=== PATIENT | male | born 1975 | race Caucasian/White ===

== ENCOUNTER 2019-06-19 20:09 | Observation (INO) | payer OTHER ==
[~2019-06-19] VITALS: Ht 177.8 cm; Wt 77.1 kg
[~2019-06-19 20:09] MED LIST: Ativan1 MG SL; BENADRYL25 MG PO; Bactrim Ds Tab1 EACH PO; Naprosyn500 MG PO; Pepcid20 MG PO; QUET25 PO; Ultram50 MG PO
== END 2019-06-20 01:31 | disposition home or self-care (01) ==
LOC: ER 20:09 → EOR 20:10
PROVIDERS: ADMIT Emergency Medicine
DX: F15.10 Other stimulant abuse, uncomplicated (principal); F41.9 Anxiety disorder, unspecified; Z88.2 Allergy status to sulfonamides; Z88.8 Allergy status to other drugs, medicaments and biological substances; F32.9 Major depressive disorder, single episode, unspecified; Z79.899 Other long term (current) drug therapy; F17.210 Nicotine dependence, cigarettes, uncomplicated
CPT/HCPCS: 36415; 93005; 93010; 96361; 96374; 99285-25; G0378; J2060; J7030

== ENCOUNTER 2019-08-12 01:22 | Emergency (ER) | payer OTHER ==
[~2019-08-12] VITALS: Ht 177.8 cm; Wt 77.1 kg
== END 2019-08-12 01:26 | disposition home or self-care (01) ==
LOC: ER 01:22
DX: F15.10 Other stimulant abuse, uncomplicated (principal); F17.210 Nicotine dependence, cigarettes, uncomplicated; Z88.2 Allergy status to sulfonamides; Z88.8 Allergy status to other drugs, medicaments and biological substances
CPT/HCPCS: 99284

== ENCOUNTER 2019-08-12 01:59 | Emergency (ER) | payer OTHER ==
[~2019-08-12] VITALS: Ht 165.1 cm; Wt 63.5 kg
== END 2019-08-12 02:18 | disposition home or self-care (01) ==
LOC: ER 01:59
DX: F15.10 Other stimulant abuse, uncomplicated (principal); F17.210 Nicotine dependence, cigarettes, uncomplicated; Z88.2 Allergy status to sulfonamides; Z88.8 Allergy status to other drugs, medicaments and biological substances
CPT/HCPCS: 99282

== ENCOUNTER → 2020-02-22 | Outpatient (CLI) | payer OTHER | END | disposition home or self-care (01) | LOC: LAB 15:26 → LAB SHORT 15:26 | DX: N49.2 Inflammatory disorders of scrotum (principal) | CPT/HCPCS: 87070; 87075; 87077; 87147; 87186; 87205 ==

== ENCOUNTER 2020-06-03 19:19 | Emergency (ER) | payer OTHER ==
[~2020-06-03] VITALS: Ht 177.8 cm; Wt 81.7 kg
== END 2020-06-03 20:57 | disposition home or self-care (01) ==
LOC: ER 19:19
DX: F22 Delusional disorders (principal); F17.210 Nicotine dependence, cigarettes, uncomplicated; Z88.2 Allergy status to sulfonamides; Z88.1 Allergy status to other antibiotic agents
CPT/HCPCS: 99282

== ENCOUNTER 2021-07-19 17:31 | Emergency (ER) | payer OTHER ==
[~2021-07-19] VITALS: Ht 177.8 cm; Wt 77.1 kg
[2021-07-19] MEDS ORDERED: CEPH500 PO (17:56)
== END 2021-07-19 18:15 | disposition home or self-care (01) ==
LOC: ER 17:31
DX: J34.0 Abscess, furuncle and carbuncle of nose (principal); F32.A Depression, unspecified; F17.210 Nicotine dependence, cigarettes, uncomplicated; Z88.2 Allergy status to sulfonamides; Z88.8 Allergy status to other drugs, medicaments and biological substances
CPT/HCPCS: 99283; A9270

== ENCOUNTER 2021-07-20 22:31 | Emergency (ER) | payer OTHER ==
[~2021-07-20] VITALS: Ht 177.8 cm; Wt 77.1 kg
[~2021-07-20 22:31] MED LIST changes: +CEPH500 PO
== END 2021-07-20 23:50 | disposition home or self-care (01) ==
LOC: ER 22:31
DX: R10.10 Upper abdominal pain, unspecified (principal); F32.A Depression, unspecified; F17.210 Nicotine dependence, cigarettes, uncomplicated; Z88.1 Allergy status to other antibiotic agents; Z88.2 Allergy status to sulfonamides
CPT/HCPCS: 99283

== ENCOUNTER 2021-08-01 00:57 | Emergency (ER) | payer OTHER ==
[2021-08-01 07:51] LABS: SARS-Cov-2 (COVID-19) PCR, MMC POSITIVE (NEGATIVE)
[2021-08-02] MEDS ORDERED: ACET500 PO (12:24)
== END 2021-08-01 01:15 | disposition home or self-care (01) ==
LOC: ER 00:57
PROVIDERS: Student in an Organized Health Care Education/Training Program
DX: J02.9 Acute pharyngitis, unspecified (principal); U07.1 COVID-19
CPT/HCPCS: 99283; U0004

== ENCOUNTER 2021-08-02 11:33 | Emergency (ER) | payer OTHER ==
[~2021-08-02] VITALS: Ht 177.8 cm; Wt 77.1 kg
[2021-08-02] MEDS ORDERED: ACET500 PO (12:24)
== END 2021-08-02 12:40 | disposition home or self-care (01) ==
LOC: ER 11:33
DX: U07.1 COVID-19 (principal); F17.210 Nicotine dependence, cigarettes, uncomplicated; Z88.8 Allergy status to other drugs, medicaments and biological substances
CPT/HCPCS: 36415; 99283; A9270

== ENCOUNTER 2022-01-21 18:52 | Emergency (ER) | payer OTHER ==
[~2022-01-21] VITALS: Ht 177.8 cm; Wt 77.1 kg
[~2022-01-21 18:52] MED LIST changes: +ACET500 PO
== END 2022-01-21 19:27 | disposition home or self-care (01) ==
LOC: ER 18:52
DX: F41.9 Anxiety disorder, unspecified (principal); R68.2 Dry mouth, unspecified; F17.210 Nicotine dependence, cigarettes, uncomplicated; Z88.2 Allergy status to sulfonamides; Z88.1 Allergy status to other antibiotic agents; Z79.899 Other long term (current) drug therapy
CPT/HCPCS: 93005; 93010

== ENCOUNTER 2022-08-08 01:14 | Emergency (ER) | payer OTHER ==
[~2022-08-08] VITALS: Ht 177.8 cm; Wt 81.7 kg
[2022-08-08 02:15] VITALS: BP 154/106
== END 2022-08-08 02:30 | disposition home or self-care (01) ==
LOC: ER 01:14
DX: F12.929 Cannabis use, unspecified with intoxication, unspecified (principal); T40.715A Adverse effect of cannabis, initial encounter; F17.210 Nicotine dependence, cigarettes, uncomplicated; Z88.2 Allergy status to sulfonamides; X58.XXXA Exposure to other specified factors, initial encounter
CPT/HCPCS: 71045; 93005; 93010; A9270

== ENCOUNTER 2023-12-15 21:39 | Emergency (ER) | payer OTHER ==
[~2023-12-15] VITALS: Ht 177.8 cm; Wt 77.1 kg
[2023-12-15 21:42] VITALS: BP 166/125
== END 2023-12-15 22:51 | disposition home or self-care (01) ==
LOC: ER 21:39
DX: Z03.6 Encounter for observation for suspected toxic effect from ingested substance ruled out (principal); F17.210 Nicotine dependence, cigarettes, uncomplicated; Z88.1 Allergy status to other antibiotic agents
CPT/HCPCS: 99283

== ENCOUNTER 2023-12-17 22:23 | Emergency (ER) | payer OTHER ==
[~2023-12-17] VITALS: Ht 177.8 cm; Wt 77.1 kg
[2023-12-18 03:30] VITALS: BP 168/72
[2023-12-18] MEDS ORDERED: ALPRAZolam 0.25 MG Tab PO ONE (03:35)
== END 2023-12-18 03:49 | disposition home or self-care (01) ==
LOC: ER 22:23
DX: F41.9 Anxiety disorder, unspecified (principal); F19.10 Other psychoactive substance abuse, uncomplicated; F17.210 Nicotine dependence, cigarettes, uncomplicated; I10 Essential (primary) hypertension; Z88.1 Allergy status to other antibiotic agents
CPT/HCPCS: 99282; A9270

== ENCOUNTER 2024-06-25 19:44 | Observation (INO) | payer OTHER ==
[~2024-06-25] VITALS: Ht 177.8 cm; Wt 77.1 kg
[2024-06-25 21:47] LABS: BASOPHILS ABSOLUTE AUTO 0.08 K/mm3 (0.00-0.23); BASOPHILS PERCENT AUTO 1 % (0-2); EOSINOPHILS PERCENT AUTO 1 % (0-6); Hematocrit 38.7 % (37.0-53.0); Hemoglobin 13.1 g/dL (13.5-17.5); IMMATURE GRAN ABSOLUTE AUTO 0.05 K/mm3 (0.00-0.10); IMMATURE GRAN PERCENT AUTO 0 % (0-1); LYMPHOCYTES ABSOLUTE AUTO 3.27 K/mm3 (0.84-5.20); LYMPHOCYTES PERCENT AUTO 25 % (21-46); MONOCYTES ABSOLUTE AUTO 1.03 K/mm3 (0.16-1.47); MONOCYTES PERCENT AUTO 8 % (4-13); Mean Corpuscular HGB 30.2 pg (26.0-34.0); Mean Corpuscular HGB Conc 33.9 g/dL (31.5-36.5); Mean Corpuscular Volume 89 fL (80-100); Mean Platelet Volume 9.1 fL (9.1-12.4); NEUTROPHILS ABSOLUTE AUTO 8.53 K/mm3 (1.96-9.15); NEUTROPHILS PERCENT AUTO 65 % (41-73); Platelet Count 350 K/mm3 (150-400); RDW Coefficient Variation 14.6 % (11.7-14.2); RDW Standard Deviation 47.8 fL (35.1-46.3); Red Blood Cell Count 4.34 M/mm3 (4.30-5.90); White Blood Cell Count 13.06 K/mm3 (4.00-11.30)
[2024-06-25 22:15] LABS: Acetaminophen, Random <2.0 ug/mL (10.0-30.0); Alanine Aminotransfer (ALT/SGP 22 U/L (12-78); Albumin, Blood 4.3 g/dL (3.4-5.0); Albumin/Globulin Ratio 1.5 (0.8-1.8); Alk Phos 98 U/L (50-136); Anion Gap 10 mmol/L (3-11); Aspartate Aminotrans (AST/SGOT 25 U/L (12-37); Bilirubin, Total 0.4 mg/dL (0.1-1.0); Blood Urea Nitrogen 39 mg/dL (8-24); Bun/Creatinine Ratio 30.2 (12.0-20.0); CO2, Blood 25 mmol/L (21-32); Calcium, Blood 9.1 mg/dL (8.5-10.1); Chloride, Blood 102 mmol/L (98-108); Creatinine, Blood 1.29 mg/dL (0.60-1.20); Ethanol (Alcohol), Blood, Med <3 mg/dL; Globulin, Blood 2.9 g/dL (2.2-4.0); Glomerular Filtration Rate 68 (60-); Glucose, Blood 96 mg/dL (70-99); Potassium, Blood 3.9 mmol/L (3.5-5.5); Salicylate 2.5 mg/dL (2.8-20.0); Sodium, Blood 133 mmol/L (136-145); Total Protein, Blood 7.2 g/dL (6.4-8.2)
[2024-06-25 22:27] LABS: Source, Urine Clean Catch
[2024-06-25 22:40] LABS: Bilirubin, Urine Neg (Neg); Blood, Urine Neg (Neg); Glucose Qualitative, Urine Neg (Neg); Ketones, Urine Neg (Neg); Leukocyte Esterase, Urine Neg (Neg); Nitrite, Urine Neg (Neg); Protein, Urine 1+ (Neg); Urobilinogen, Urine NORM (Normal)
[2024-06-25 23:03] LABS: U Amphetamine Screen DETECTED; U Barbituate Screen Not Detected; U Benzodiazapine Screen Not Detected; U Buprenorphine Screen Not Detected; U Cannabinoids Screen DETECTED; U Cocaine Screen Not Detected; U Methadone Screen Not Detected; U Methamphetamine Screen DETECTED; U Opiates Screen Not Detected; U Oxycodone Screen Not Detected; U Phencyclidine Screen Not Detected
[2024-06-25 23:06] LABS: Appearance, Urine Clear (Clear); Color, Urine Yellow (P-Yellow)
[2024-06-26 09:23] VITALS: BP 146/94
== END 2024-06-26 23:00 | disposition other institution (70) ==
LOC: ER 19:44 → EOR 19:45
PROVIDERS: ADMIT Student in an Organized Health Care Education/Training Program
DX: R45.851 Suicidal ideations (principal); F15.90 Other stimulant use, unspecified, uncomplicated; I10 Essential (primary) hypertension; F17.210 Nicotine dependence, cigarettes, uncomplicated; Z88.2 Allergy status to sulfonamides; Z88.1 Allergy status to other antibiotic agents
CPT/HCPCS: 80053; 80320; 85025; 99285; G0378; G0480

== ENCOUNTER 2024-06-26 09:50 | Inpatient (IN) | payer OTHER ==
[~2024-06-26] VITALS: Ht 177.8 cm; Wt 78.2 kg
[2024-06-26] MEDS ORDERED: LORazepam 2 MG/ML 1ML Injection IM PRN (12:40)
[2024-06-26] MEDS ORDERED: OLANZapine ODT 10 MG Tab MM PRN (12:40)
[2024-06-26] MEDS ORDERED: Polyethylene Glycol 3350 17 gm PO PRN (12:45)
[2024-06-26] MEDS ORDERED: Acetaminophen 325 MG TABLET PO PRN (12:45)
[2024-06-26] MEDS ORDERED: Melatonin 3 MG Tab PO PRN (12:45)
[2024-06-26] MEDS ORDERED: Aluminum Hydroxide 320MG/5ML 473 ML PO PRN (12:45)
[2024-06-26] MEDS ORDERED: Calcium Carbonate 500 MG Tab Chew PO PRN (12:45)
[2024-06-26] MEDS ORDERED: DiphenhydrAMINE HCl 50 MG Cap PO PRN (12:45)
[2024-06-26] MEDS ORDERED: TraZODone HCl 50 MG Tab PO PRN (12:45)
[2024-06-26] MEDS ORDERED: LORazepam 2 MG Tab PO PRN (12:50)
[2024-06-26] MEDS ORDERED: HydrOXYzine Pamoate 50 MG Cap PO PRN (12:50)
[2024-06-26] MEDS ORDERED: Haloperidol 5 MG Tab PO PRN (12:50)
[2024-06-26] MEDS ORDERED: DiphenhydrAMINE HCl 50 MG/ML 1ML Vial IV PRN (12:50)
[2024-06-26] MEDS ORDERED: Haloperidol Lactate Inj. 5 MG/ML Injection IM PRN (12:50)
[2024-06-26] MEDS ORDERED: Ibuprofen 600 MG Tab PO PRN (12:50)
[2024-06-26] MEDS ORDERED: Ondansetron 4 MG SoluTab MM PRN (13:15)
[2024-06-26 20:33] VITALS: BP 117/72
[2024-06-26] MEDS ORDERED: OLANZapine 10 MG Tab PO SCH (21:00)
[2024-06-26 21:58] VITALS: BP 117/72
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
[2024-06-26] MEDS ORDERED: Nicotine Polacrilex 2 MG Gum PO PRN (23:50)
--- NOTE | 2024-06-27 05:25 | NUR ---
SHIFT SUMMARY NO ACUTE EVENTS SINCE ASSUMPTION OF CARE AT 0000 FROM ALEN RUCKER RN. PT SLEPT/RESTED QUIETLY T/O SHIFT.
[2024-06-27 08:21] VITALS: BP 152/94
[2024-06-27] MEDS ORDERED: Multivitamins 1 Tab PO SCH (09:00)
--- NOTE | 2024-06-27 17:09 | NUR ---
SHIFT SUMMARY: PT ALERT, ORIENTED AND COOPERATIVE WITH CARE. DENIES SI, HI AND AVH. PT SPENT MUCH OF THE DAY RESTING IN BED. HE DID ATTEND MEALS AND WAS PRESENT IN THE DAY ROOM IN THE EVENING. PT COMPLIANT WITH MEDICATIONS.
[2024-06-27] MEDS ORDERED: OLANZapine 10 MG Tab PO SCH (21:00)
[2024-06-27 22:12] VITALS: BP 137/84
--- NOTE | 2024-06-28 03:53 | NUR ---
SHIFT SUMMARY: PATIENT WAS SLEEPING AT BEGINNING OF CARE. HE DID WAKE UP FOR SNACK AND HE DID SOCIALIZE WITH OTHER PATIENTS AND STAFF. HE IS COMPLIANT WITH POC AND MEDICATIONS. HE CURRENTLY DENIES SI, AH AND VH. HE DID GO BACK TO SLEEP AFTER PM MEDICATIONS AND SNACK. HE SLEPTED THROUGH THE NIGHT. NO NOTED BEHAVIORS OR ISSUES. WE WILL CONTINUE 15 MIN CHECKS FOR SAFETY AND COMFORT.
[2024-06-28] MEDS ORDERED: buPROPion HCL 150 MG TAB.SR.12H PO SCH (09:00)
--- NOTE | 2024-06-28 17:23 | NUR ---
SHIFT SUMMARY: PATIENT HAS MINIMALLY PARTICIPATED IN ACTIVITIES TODAY. DID GO TO GROUPS BUT WAS NOT ACTIVELY PARTICIPATING. DOES NOT HOLD CONVERSATIONS WITH STAFF OR OTHER PATIENTS. ONE WORD ANSWERS TO MOST QUESTIONS. POOR GROOMING HABITS. STAYS IN ROOM AT ALL OTHER TIMES.
[2024-06-28 20:00] VITALS: BP 140/92
--- NOTE | 2024-06-29 05:15 | NUR ---
PATIENT SUMMARY: ASSUMED CARE FROM PRIOR SHIFT. PATIENT WAS SLEEPING AT BEGINNING OF SHIFT. HE DOES WAKE UP EASILY AND GOES TO SNACK AND GROUP. HE IS A/O X 3, ABLE TO VOICE NEEDS BUT DOESN'T ENGAGE IN CONVERSATION AT LENGTH. HE CURRENTLY DENIES DENIES ANY SI, VH AND AH. HE IS COMPLIANT WITH MEDICATIONS AND POC. HE GOES BACK TO SLEEP WITHOUT ENCOURAGEMENT. NO NOTED BEHAVIORS OR ISSUES. WE WILL CONTINUE TO MONITOR FOR SAFETY AND COMFORT EVERY 15 MIN.
[2024-06-29 06:55] LABS: CHOL/HDL RATIO 2.8; Cholesterol 167 mg/dL (50-200); HDL Cholesterol 59 mg/dL (>39); LDL/HDL RATIO 1.6; Low Density Lipoprotein Chol 92 mg/dL (0-110); Triglycerides 79 mg/dL (30-160); Very Low Density Lipoprot Chol 15 mg/dL (6-32)
[2024-06-29 08:11] VITALS: BP 151/90
--- NOTE | 2024-06-29 10:11 | NUR ---
SHIFT SUMMARY: PT DENIED SI, HI AND AVH. HE ENDORSED ANXIETY 7/10w AND PAIN TO HIS RIGHT KNEE LEVEL 6/10w. HE WAS GIVEN VISTERIL 50MG PO FOR ANXIETY AND TYLENOL 650MG PO FOR PAIN. PT WAS ATTENDING GROUPS BUT WASN'T FULLY PARTICIPATING. HE DESCRIBED HIS MOOD , "GOOD," HIS AFFECT WAS FLAT.
--- NOTE | 2024-06-29 17:52 | NUR ---
SHIFT NOTE PT DENIED SI/HI/AVTH, AND HE STAYED FLAT IN AFFECT THIS SHIFT. HE WAS MINIMALLY PARTICIPATORY IN GROUPS AND PEER GATHERINGS. PT CONTINUES TO HAVE SOME PAIN AFTER BEING MEDICATED WITH TYELNOL EARLY. HE HAS BEEN COMPLIANT WITH MEDICATIONS THIS SHIFT.
[2024-06-29 20:00] VITALS: BP 152/95
--- NOTE | 2024-06-30 04:27 | NUR ---
SHIFT SUMMARY PATIENT UP OUT OF ROOM FOR SNACK. COOPERATIVE WITH MEDICATIONS. DENIES SI, HI, OR AVH. APPEARS TO BE SLEEPING WELL T/O NIGHT WITH RESP EVEN AND UNLABORED. CONTINUE TO MONITOR Q15MIN
[2024-06-30 08:11] VITALS: BP 155/94
[2024-06-30] MEDS ORDERED: BUPR150ER PO (13:38)
[2024-06-30] MEDS ORDERED: OLAN10 PO (13:39)
--- NOTE | 2024-06-30 17:07 | NUR ---
SHIFT SUMMARY PT A/O X4 AND COOPERATIVE WITH CARE. HE DENIES SI, HI, AVTH. HE ATTENDED ALL GROUPS AND MEALS THIS SHIFT. PT HAD NO COMPLAINTS OR ACUTE CHANGES THIS SHIFT. PT MONITORED VIA Q15 ROUNDING FOR SAFETY AND WELLNESS.
[2024-06-30 20:18] VITALS: BP 151/89
--- NOTE | 2024-07-01 04:26 | NUR ---
SHIFT SUMMARY PATIENT UP FOR SNACK THEN BACK TO BED VERBALIZED "FEELING BETTER" "JUST TIRED" DENIES SI, HI, OR AVH. COOPERATIVE WITH MEDICATIONS. APPEARS TO BE SLEEPING WELL T/O NIGHT RESP EVEN AND UNLABORED. CONTINUE TO MONITOR Q15MIN
[2024-07-01 08:04] VITALS: BP 160/105
--- NOTE | 2024-07-01 10:40 | NUR ---
IMPORTANT DISCHARGE INFORMATION PATIENT IS ESTABLLISHED WITH [facility], HE CAN WALK IN FOR ALL MEDICAL AND MENTAL HEALTH SERVICES. HE WOULD LIKE TO BE DISCHARGED AFTER LUNCH TODAY 07/01/24 ON FOOT. PHARMACY: [facility]
--- NOTE | 2024-07-01 12:50 | NUR ---
SHIFT ASSESSMENT: PT DENIED SI, HI AND AVH. HE ENDORSED ANXIETY 4/10w AND PAIN TO HIS SHOULDERS 4/10w HIS AFFECT IS FLAT. HE REPORTED HIS MOOD "OK NOT TOO BAD." PT ATTENDED GROUPS TODAY AND IS PLEASANT AND COOPERATIVE. PT WAS WATCHING A MOVIE WITH [employer].
--- NOTE | 2024-07-01 12:53 | NUR ---
12:48 PT WAS DISCHARGED WITH HIS DISCHARGE INSTRUCTIONS AND ALL OF HIS BELONGINGS. PT WAS LOOKING FORWARD TO LEAVING THE UNIT, HE FILLED OUT A SAFETY PLAN, WITH GOALS "TO TALK WITH MY SISTER, GO TO [id number] AND NOT HANGE OUT WITH CERTAIN PEOPLE." HIS COPING SKILLS ARE TO: "BREATHE, GROUNDING TECHNIQUES AND TALK TO SOMEONE." HIS SISTER IS SOMEONE HE FEELS SAFE WITH. HIS MEDS WERE FAXED TO [facility].
== END 2024-07-01 12:48 | disposition home or self-care (01) | DRG 885 ==
LOC: BHU 09:50
PROVIDERS: ADMIT Student in an Organized Health Care Education/Training Program
DX: F30.2 Manic episode, severe with psychotic symptoms (principal); Z59.00 Homelessness unspecified; Z79.899 Other long term (current) drug therapy; Z88.8 Allergy status to other drugs, medicaments and biological substances; Z88.2 Allergy status to sulfonamides; F17.210 Nicotine dependence, cigarettes, uncomplicated; F15.90 Other stimulant use, unspecified, uncomplicated
CPT/HCPCS: 36415; 80061; 83036; 84443; 86592; 93005; 93010; A9270

== ENCOUNTER 2024-12-10 02:07 | Emergency (ER) | payer OTHER ==
[~2024-12-10] VITALS: Ht 177.8 cm; Wt 79.4 kg
[~2024-12-10 02:07] MED LIST changes: +BUPR150ER PO; +OLAN10 PO
[2024-12-10] MEDS ORDERED: Ketorolac Tromethamine 15mg Vial IV ONE (02:45)
[2024-12-10 03:06] LABS: BASOPHILS ABSOLUTE AUTO 0.07 K/mm3 (0.00-0.23); BASOPHILS PERCENT AUTO 1 % (0-2); EOSINOPHILS ABSOLUTE AUTO 0.13 K/mm3 (0.00-0.68); EOSINOPHILS PERCENT AUTO 1 % (0-6); Hematocrit 36.6 % (37.0-53.0); Hemoglobin 12.7 g/dL (13.5-17.5); IMMATURE GRAN ABSOLUTE AUTO 0.02 K/mm3 (0.00-0.10); IMMATURE GRAN PERCENT AUTO 0 % (0-1); LYMPHOCYTES ABSOLUTE AUTO 1.82 K/mm3 (0.84-5.20); LYMPHOCYTES PERCENT AUTO 18 % (21-46); MONOCYTES ABSOLUTE AUTO 0.61 K/mm3 (0.16-1.47); MONOCYTES PERCENT AUTO 6 % (4-13); Mean Corpuscular HGB Conc 34.7 g/dL (31.5-36.5); Mean Corpuscular Volume 88 fL (80-100); NEUTROPHILS ABSOLUTE AUTO 7.31 K/mm3 (1.96-9.15); NEUTROPHILS PERCENT AUTO 73 % (41-73); NRBC ABSOLUTE 0.00 K/mm3 (0.00-0.02); NRBC Auto 0.0 /100 WBC (0.0-0.2); Platelet Count 402 K/mm3 (150-400); RDW Coefficient Variation 13.4 % (11.7-14.2); RDW Standard Deviation 43.6 fL (35.1-46.3)
[2024-12-10 03:25] LABS: Alanine Aminotransfer (ALT/SGP 32.0 U/L (12-78); Albumin, Blood 3.6 g/dL (3.4-5.0); Albumin/Globulin Ratio 1.1 (0.8-1.8); Anion Gap 9.0 mmol/L (3-11); Aspartate Aminotrans (AST/SGOT 24.0 U/L (12-37); Bilirubin, Total 0.2 mg/dL (0.1-1.0); Blood Urea Nitrogen 26.0 mg/dL (8-24); CO2, Blood 26.0 mmol/L (21-32); Calcium, Blood 8.5 mg/dL (8.5-10.1); Chloride, Blood 104.0 mmol/L (98-108); Creatinine, Blood 1.16 mg/dL (0.60-1.20); Globulin, Blood 3.3 g/dL (2.2-4.0); Glucose, Blood 116.0 mg/dL (70-99); Potassium, Blood 3.8 mmol/L (3.5-5.5); Sodium, Blood 135.0 mmol/L (136-145); Total Protein, Blood 6.9 g/dL (6.4-8.2)
[2024-12-10 03:34] LABS: Source, Urine Clean Catch
[2024-12-10 03:51] LABS: Bilirubin, Urine Neg (Neg); Glucose Qualitative, Urine Neg (Neg); Ketones, Urine Neg (Neg); Leukocyte Esterase, Urine Neg (Neg); Protein, Urine 1+ (Neg); Specific Gravity, Urine 1.010 (1.003-1.022); Urobilinogen, Urine NORM (Normal)
[2024-12-10 03:56] LABS: Color, Urine Pale Yellow (P-Yellow)
[2024-12-10 06:45] VITALS: BP 139/101
== END 2024-12-10 06:50 | disposition home or self-care (01) ==
LOC: ER 02:07
PROVIDERS: Student in an Organized Health Care Education/Training Program
DX: R10.84 Generalized abdominal pain (principal); R30.0 Dysuria; Z88.2 Allergy status to sulfonamides; Z79.899 Other long term (current) drug therapy; I10 Essential (primary) hypertension; F17.210 Nicotine dependence, cigarettes, uncomplicated
CPT/HCPCS: 74177; 80053; 83690; 85025; 96361; 96374-59; 99284-25; J1885; J7120; Q9967